=== PATIENT | female | born 1995 | race African-American/Black ===

== ENCOUNTER 2016-05-24 11:25 | Emergency (ER) | payer OTHER ==
[~2016-05-24] VITALS: Ht 160 cm; Wt 49.9 kg
[2016-05-24] MEDS ORDERED: IV NORMAL SALINE 1000ML BAG 1,000 ML IV SCH (12:06)
[2016-05-24] MEDS ORDERED: PROMETHAZINE 12.5 MG in IV NORMAL SALINE 50ML 50 ML IV PRN (12:15)
[2016-05-24 12:17] LABS: BASO % 0 % (0-3); EOS % 1 % (0-3); HEMATOCRIT 36.7 % (36.0-47.0); HEMOGLOBIN 12.1 g/dL (12.0-15.5); LYMPH # 2.4 x10^3/uL (1.0-4.8); LYMPH % 36 % (24-48); MEAN CORPUSCULAR HEMOGLOBIN 29 pg (25-35); MEAN CORPUSCULAR HGB CONC 33 g/dL (31-37); MEAN CORPUSCULAR VOLUME 88 fL (79-100); MONO % 12 % (0-9); NEUT % 51 % (31-73); PLATELET COUNT 282 x10^3/uL (140-400); RED BLOOD COUNT 4.16 x10^6/uL (3.50-5.40); RED CELL DISTRIBUTION WIDTH 14.5 % (11.5-14.5); WHITE BLOOD COUNT 6.6 x10^3/uL (4.0-11.0)
[2016-05-24 12:21] LABS: CALCIUM 9.2 mg/dL (8.5-10.1); CREATININE 0.6 mg/dL (0.6-1.0); GFR 152.7; POTASSIUM 3.5 mmol/L (3.5-5.1)
[2016-05-24 12:28] LABS: ALBUMIN 4.2 g/dL (3.4-5.0); TOTAL BILIRUBIN 0.9 mg/dL (0.2-1.0); TOTAL PROTEIN 8.4 g/dL (6.4-8.2)
[2016-05-24 12:34] LABS: BILIRUBIN,URINE SMALL (NEG); GLUCOSE,URINE NEGATIVE (NEG); NITRITE,URINE NEGATIVE (NEG); PROTEIN,URINE NEGATIVE (NEG-TRACE)
[2016-05-24 12:35] LABS: BACTERIA,URINE FEW /HPF (0-FEW); RBC,URINE RARE /HPF (0-2); SQUAMOUS EPITHELIAL CELL,UR FEW /LPF; WBC,URINE RARE /HPF (0-4)
--- NOTE | 2016-05-24 12:35 | PHYS DOC ---
Past Medical History Past Medical History: No Pertinent History Past Surgical History: Cholecystectomy, Other Additional Past Surgical Histo: Gall stones. Additional Information: nonsmoker Alcohol Use: None Drug Use: None Adult General Chief Complaint Chief Complaint: VOMITING IN HPI HPI Patient is a 21 year old female who is currently 9 weeks who presents with nausea and vomiting for 2 days. She reports some pelvic cramping that denies vaginal bleeding or vaginal discharge. She's had urinary frequency with decreased output. She denies dysuria. She's not had any diarrhea with the nausea or vomiting. The patient was prescribed Zofran by her OB doctor. She left her Zofran had work and has been unable to take it. She has also been prescribed promethazine. She tried taking this today but continued to have nausea with vomiting after taking this medication. Patient reports LMP 02/25/16 , 9 weeks gestation with estimated delivery date 12/22/16. wheel suggest LMP closer to 03/17/16 if her due date is 12/22/16 and 9 weeks[address] Her [address] is Dr. Telles. Review of Systems Review of Systems Constitutional: Denies fever or chills. [] Eyes: Denies change in visual acuity, redness, or eye pain. [] HENT: Denies nasal congestion or sore throat. [] Respiratory: Denies cough or shortness of breath. [] Cardiovascular: Denies chest pain, palpitations, or edema. [] GI: Denies bloody stools or diarrhea. Reports nausea, vomiting, and lower abdominal cramping. : Denies dysuria or hematuria. Denies vaginal bleeding or vaginal discharge. Reports urinary frequency with decreased output. Musculoskeletal: Denies back pain or joint pain. [] Integument: Denies rash or skin lesions. [] Neurologic: Denies headache, focal weakness or sensory changes. [] Endocrine: Denies polyuria or polydipsia. [] Psych: Denies anxiety or depression. All systems reviewed and negative unless otherwise indicated in the HPI. Current Medications Current Medications Current Medications Medications (Trade) Dose Ordered Sig/Saqib Start Time Stop Time Status Last Admin Dose Admin Promethazine HCl/ Sodium Chloride (Phenergan/Iv Sodium Chloride 0.9% 50ml) 50.5 ml @ 151.5 mls/ hr PRN Q6HRS PRN 05/24/16 12:15 05/24/16 13:56 DC 05/24/16 12:30 151.5 MLS/HR Sodium Chloride 1,000 ml @ 1,000 mls/hr Q1H 05/24/16 12:06 05/24/16 13:05 DC 05/24/16 12:30 1,000 MLS/HR Allergies Allergies Allergies Coded Allergies Type Severity Reaction Last Updated Verified No Known Drug Allergies 06/30/14 No Physical Exam Physical Exam Constitutional: Well developed, well nourished, no acute distress, non-toxic appearance. [] HENT: Normocephalic, atraumatic, oropharynx moist. [] Eyes: PERRLA, EOMI, conjunctiva normal. [] Neck: Normal range of motion, no tenderness, supple, no stridor. [] Cardiovascular: Regular rate and rhythm without murmur [] Lungs & Thorax: Bilateral breath sounds clear to auscultation [] Abdomen: Bowel sounds normal, soft, mild epigastric tenderness, no masses, no pulsatile masses. [] Skin: Warm, dry, no erythema, no rash. [] Back: No tenderness, no CVA tenderness. [] Extremities: No tenderness, no cyanosis, no clubbing, ROM intact, no edema, bilateral pulses equal. [] Neurologic: Alert and oriented X 3, normal motor function, normal sensory function, no focal deficits noted. [] Psychologic: Affect normal, judgement normal, mood normal. [] Current Patient Data Vital Signs Vital Signs Date Time Temp Pulse Resp B/P Pulse Ox O2 Delivery O2 Flow Rate FiO2 05/24/16 13:54 84 16 99/57 99 Room Air 05/24/16 11:30 98.3 98.3 Lab Values Laboratory Tests Test 05/24/16 11:33 05/24/16 11:39 Urine Collection Type Unknown Urine Color [place] Urine Clarity Cloudy Urine pH 8.0 Urine Specific [place] 1.025 Urine Protein Negativemg/dL (NEG-TRACE) Urine Glucose (UA) Negativemg/dL (NEG) Urine Ketones (Stick) Tracemg/dL (NEG) Urine Blood Negative (NEG) Urine Nitrite Negative (NEG) Urine Bilirubin Small (NEG) Urine Urobilinogen Dipstick 2.0mg/dL (0.2 mg/dL) Urine Leukocyte Esterase Trace (NEG) Urine RBC Rare/HPF (0-2) Urine WBC Rare/HPF (0-4) Urine Squamous Epithelial Cells Few/LPF Urine Bacteria Few/HPF (0-FEW) Urine Mucus Mod/LPF White Blood Count 6.6x10^3/uL (4.0-11.0) Red Blood Count 4.16x10^6/uL (3.50-5.40) Hemoglobin 12.1g/dL (12.0-15.5) Hematocrit 36.7% (36.0-47.0) Mean Corpuscular Volume 88fL (79-100) Mean Corpuscular Hemoglobin 29pg (25-35) Mean Corpuscular Hemoglobin Concent 33g/dL (31-37) Red Cell Distribution Width 14.5% (11.5-14.5) Platelet Count 282x10^3/uL (140-400) Neutrophils (%) (Auto) 51% (31-73) Lymphocytes (%) (Auto) 36% (24-48) Monocytes (%) (Auto) 12% (0-9) H Eosinophils (%) (Auto) 1% (0-3) Basophils (%) (Auto) 0% (0-3) Neutrophils # (Auto) 3.4x10^3uL (1.8-7.7) Lymphocytes # (Auto) 2.4x10^3/uL (1.0-4.8) Monocytes # (Auto) 0.8x10^3/uL (0.0-1.1) Eosinophils # (Auto) 0.1x10^3/uL (0.0-0.7) Basophils # (Auto) 0.0x10^3/uL (0.0-0.2) Maternal Serum HCG Beta Subunit [id number]/mL (0-6) H Sodium Level 138mmol/L (136-145) Potassium Level 3.5mmol/L (3.5-5.1) Chloride Level 101mmol/L (98-107) Carbon Dioxide Level 25mmol/L (21-32) Anion Gap 12 (6-14) Blood Urea Nitrogen 6mg/dL (7-20) L Creatinine 0.6mg/dL (0.6-1.0) Estimated GFR (Cockcroft-Gault) 152.7 BUN/Creatinine Ratio 10 (6-20) Glucose Level 85mg/dL (70-99) Calcium Level 9.2mg/dL (8.5-10.1) Total Bilirubin 0.9mg/dL (0.2-1.0) Aspartate Amino Transferase (AST) 15U/L (15-37) Alanine Aminotransferase (ALT) 18U/L (14-59) Alkaline Phosphatase 41U/L (46-116) L Total Protein 8.4g/dL (6.4-8.2) H Albumin 4.2g/dL (3.4-5.0) Albumin/Globulin Ratio 1.0 (1.0-1.7) Lipase 88U/L (73-393) Laboratory Tests 05/24/16 11:39 Laboratory Tests 05/24/16 11:39 EKG EKG [] Radiology/Procedures Radiology/Procedures REASON: pelvic cramping, LMP 02/25/16, no bleeding PROCEDURE: OB < 14 WKS Indication cramping, nausea, hyperemesis. Early obstetrical ultrasound examination was performed. No prior imaging is available associated with this ultrasound examination. The uterus measures approximately 10.1 x 9.6 x 8.6 cm. There is a single, viable, IUP. A heart rate 185 was documented. The crown-rump length of 3 cm is compatible with a gestational age of 19 weeks 6 days. I sonographic analysis the expected date of confinement is 12/14/2016. Note is made of a subchorionic hemorrhage associated with the . There is a 1.6 cm cyst seen associated with the left ovary.. The right ovary was not seen. IMPRESSION: Single, viable, IUP of approximately 9 weeks 6 days gestation. Subchorionic hemorrhage is noted associated with the . Physiologic cyst associated with the left ovary. The right ovary was not visualized Course & Med Decision Making Course & Med Decision Making Pertinent Labs and Imaging studies reviewed. (See chart for details) Patient is a 21-year-old female currently 9 weeks who presents with 2 days of nausea and vomiting. On exam, her abdomen is soft with mild epigastric tenderness. There are no significant laboratory abnormalities. Ultrasound shows IUP at 9 weeks 6 days with small subchorionic hemorrhage. The patient improved with IV fluids and Phenergan. I discussed results with the patient. She is instructed to follow closely with her OB doctor. She is given a prescription for Compazine, as the promethazine has been unhelpful and her insurance will not allow her to fill more Zofran at this time. Return precautions were discussed, including vaginal bleeding. She verbalizes understanding and agrees with plan. Venu Disclaimer Venu Disclaimer This electronic medical record was generated, in whole or in part, using a voice recognition dictation system. Departure Departure Impression: Primary Impression: Hyperemesis gravidarum Disposition: 01 HOME, SELF-CARE Condition: IMPROVED Referrals: REGGIE TELLES Jr, MD (PCP) Patient Instructions: Hyperemesis Gravidarum Additional Instructions: You were seen for nausea and vomiting in . There were no abnormalities on your blood work or infection in your urine. Your ultrasound showed fetus at 9 weeks 6 days with a small subchorionic hemorrhage. This may cause some bleeding during your . Please follow up with your OB doctor in the next 2-3 days. Return to the emergency department if you have continued vomiting, vaginal bleeding, or other new or concerning symptoms. Scripts Prochlorperazine Maleate (Compazine)10 Mg [id number] Mg PO Q6HRS PRN NAUSEA/ VOMITING #12 Prov:VICTORINO CARTAGENA 05/24/16 VICTORINO CARTAGENA May 24, 2016 12:35
--- NOTE | 2016-05-24 13:23 | RAD ---
Indication cramping, nausea, hyperemesis. Early obstetrical ultrasound examination was performed. No prior imaging is available associated with this ultrasound examination. The uterus measures approximately 10.1 x 9.6 x 8.6 cm. There is a single, viable, IUP. A heart rate 185 was documented. The crown-rump length of 3 cm is compatible with a gestational age of 19 weeks 6 days. I sonographic analysis the expected date of confinement is 12/14/2016. Note is made of a subchorionic hemorrhage associated with the . There is a 1.6 cm cyst seen associated with the left ovary.. The right ovary was not seen. IMPRESSION: Single, viable, IUP of approximately 9 weeks 6 days gestation. Subchorionic hemorrhage is noted associated with the . Physiologic cyst associated with the left ovary. The right ovary was not visualized
[2016-05-24] MEDS ORDERED: PROC10TA57 PO (13:36)
[2016-05-24 13:54] VITALS: BP 99/57
== END 2016-05-24 13:56 | disposition home or self-care (01) ==
LOC: ER 11:25
DX: O21.0 Mild hyperemesis gravidarum (principal); Z3A.09 9 weeks gestation of pregnancy; Z90.49 Acquired absence of other specified parts of digestive tract
CPT/HCPCS: 36415; 76801; 80053; 81001; 83690; 84702; 85027; 87086; 96361; 96365; 99285; J2550; J7030

== ENCOUNTER 2016-12-25 13:04 | Emergency (ER) | payer MEDICAID, OTHER ==
[~2016-12-25] VITALS: Ht 165.1 cm; Wt 56.2 kg
[~2016-12-25 13:04] MED LIST: PROC10TA57 PO
[2016-12-25 13:20] VITALS: BP 127/59
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
== END 2016-12-25 14:47 | disposition home or self-care (01) ==
LOC: ER 13:04
DX: Z04.1 Encounter for examination and observation following transport accident (principal)
CPT/HCPCS: 99281

== ENCOUNTER 2021-05-30 17:36 | Emergency (ER) | payer MEDICAID ==
[~2021-05-30] VITALS: Ht 165.1 cm; Wt 50.3 kg
[2021-05-30 18:26] VITALS: BP 124/75
--- NOTE | 2021-05-30 22:39 | PHYS DOC ---
Past Medical History Past Medical History: No Pertinent History, Other Additional Past Medical Histor: GALLSTONES Past Surgical History: Cholecystectomy, Additional Past Surgical Histo: Gall stones. Smoking Status: Former Smoker Alcohol Use: None Drug Use: None Adult General Chief Complaint Chief Complaint: BLOODY STOOL HPI HPI The patient is a 26-year-old female who is otherwise healthy. About 7 days ago she began developing upper respiratory symptoms and tested positive for COVID, her second time positive for COVID. She states she has largely gotten better and is not having any symptoms right now related to COVID-19. She presents for evaluation of bright red blood per rectum 1 time earlier today. She states she felt she needed to have a bowel movement and then went and saw bright red blood in the toilet bowl. She denies any associated abdominal pain either earlier or now. She denies fevers, nausea or vomiting, hematemesis, melena, shortness of breath or chest pain of any kind, lightheadedness of any kind, flank pain, midline back pain, dysuria, hematuria, polyuria or oliguria, changes in bowel habits. Patient is alert and pleasantly and appropriately interactive and in no acute distress. Vital signs are appropriate here. Review of Systems Review of Systems A 12 point review of systems was completed and was negative except for noted in HPI above. Allergies Allergies Allergies Coded Allergies Type Severity Reaction Last Updated Verified No Known Drug Allergies 06/30/14 No Physical Exam Physical Exam 26-year-old female appearing nontoxic and in no acute distress. Head is normocephalic and atraumatic. Neck is supple and nontender. Oropharynx is moist. Lungs are clear to auscultation at all stations. There is a normal S1 and S2 without rubs or gallops and capillary refill is appropriate, less than 2 seconds globally. Abdomen is soft, nontender and nondistended. Skin is warm and dry without cyanosis, clubbing or edema. Psychiatrically, the patient demonstrates appropriate mood and affect and is alert. Rectal examination with nonthrombosed soft external and internal hemorrhoids. Internal digital rectal examination with scant dried blood on the examination glove with no active bleeding seen and no masses or lesions aside from a few internal hemorrhoids. Current Patient Data Vital Signs Vital Signs Date Time Temp Pulse Resp B/P (MAP) Pulse Ox O2 Delivery O2 Flow Rate FiO2 05/30/21 18:26 98.0 73 12 124/75 (91) 99 Room Air 98.0 EKG EKG [] Radiology/Procedures Radiology/Procedures [] Course & Med Decision Making Course & Med Decision Making Well-appearing 26-year-old female with normal vital signs and reassuring clinical examination presenting for evaluation of an isolated episode of scant hematochezia into the toilet bowl earlier today. No associated abdominal pain. Benign nontender abdomen on exam. Internal and external hemorrhoids noted on digital rectal exam with some scant dried blood seen but no active bleeding. Likely bleeding from an internal hemorrhoid. Will discharge home to follow-up tomorrow with primary care at an appointment which is already scheduled. Patient understands that if she feels worse instead of better, has recurrent symptoms or develops other new symptoms of concern that she should return to the emergency department immediately for reevaluation. All questions are answered. Dragon Disclaimer Dragon Disclaimer This electronic medical record was generated, in whole or in part, using a voice recognition dictation system. Departure Departure Impression: Primary Impression: Hematochezia Disposition: 01 HOME / SELF CARE / HOMELESS Condition: GOOD Patient Instructions: Rectal Bleeding Additional Instructions: Follow-up very closely with your primary care doctor tomorrow as scheduled for reevaluation of your symptoms and a discussion of next best steps in care. Begin taking a capful of MiraLAX twice a day to help soften your stools. This is available [id number] at the pharmacy. Return to the emergency department right away for worsening symptoms of any kind or with any other new symptoms of concern. RAQUEL RAYMOND MD May 30, 2021 22:39
== END 2021-05-30 23:00 | disposition home or self-care (01) ==
LOC: ER 17:36
DX: K92.1 Melena (principal); Z87.891 Personal history of nicotine dependence
CPT/HCPCS: 99282